=== PATIENT | female | born 1955 | race Caucasian/White ===

== ENCOUNTER 2019-10-16 15:00 | Outpatient (CLI) | payer BC, SELFPAY ==
--- NOTE | ~2019-10-16 | MM_ITS ---
EXAMINATION: MM screening scarlet BI w benjamin HISTORY: Screening mammogram, family history of breast cancer in her mother. TECHNIQUE: Craniocaudal and mediolateral oblique 3-D tomosynthesis images were obtained and synthetic 2-D images were generated. CAD analysis was submitted and interpreted. COMPARISON: 09/18/2018, 09/05/2017, 08/29/2016, 08/15/2014 BREAST PARENCHYMAL COMPOSITION: There are scattered areas of fibroglandular density. FINDINGS: Asymmetry in the middle third of the inner left breast on the craniocaudal view is stable o n multiple prior mammograms, consistent with a benign finding. There is no evidence of suspicious mas s, calcification, or architectural distortion to suggest malignancy in either breast. There has been no suspicious interval change. IMPRESSION: 1. No mammographic evidence of malignancy. 2. Recommend routine screening mammography in one year. BI-RADS Category 2: Benign finding(s). Reviewed, dictated and finalized at location A.
== END 2019-10-16 15:01 | disposition home or self-care (01) ==
LOC: ANHIMG 15:04
PROVIDERS: PCP Physician Assistant; Visit Provider Physician Assistant
DX: Z12.31 Encounter for screening mammogram for malignant neoplasm of breast (principal)
CPT/HCPCS: 77063; 77067

== ENCOUNTER 2020-10-19 15:43 | Outpatient (CLI) | payer BC, SELFPAY ==
--- NOTE | ~2020-10-19 | MM_ITS ---
EXAMINATION: MM screening scarlet BI w benjamin HISTORY: Screening TECHNIQUE: Craniocaudal and mediolateral oblique 3-D tomosynthesis images were obtained and synthetic 2-D images were generated. CAD analysis was submitted and interpreted. COMPARISON: Comparison to multiple prior studies sequentially, with oldest reviewed study dated 08/15. BREAST PARENCHYMAL COMPOSITION: There are scattered areas of fibroglandular density. FINDINGS: Left breast asymmetry in the upper inner quadrant of the left breast is stable. There is no evidence of suspicious mass, calcification, or architectural distortion to suggest malignancy in eit her breast. There has been no suspicious interval change. IMPRESSION: 1. No mammographic evidence of malignancy. 2. Recommend routine screening mammography in one year. BI-RADS Category 1: Negative Reviewed, dictated and finalized at location A.
== END 2020-10-19 15:44 | disposition home or self-care (01) ==
PROVIDERS: PCP Physician Assistant; Visit Provider Physician Assistant
DX: Z12.31 Encounter for screening mammogram for malignant neoplasm of breast (principal)
CPT/HCPCS: 77063; 77067

== ENCOUNTER 2021-10-21 13:26 | Outpatient (CLI) | payer BC, SELFPAY ==
--- NOTE | ~2021-10-21 | MM_ITS ---
EXAMINATION: MM screening scarlet BI w benjamin HISTORY: Screening TECHNIQUE: Craniocaudal and mediolateral oblique 3-D tomosynthesis images were obtained and synthetic 2-D images were generated. CAD analysis was submitted and interpreted. COMPARISON: Comparison to multiple prior studies sequentially, with oldest reviewed study dated 08/26. BREAST PARENCHYMAL COMPOSITION: There are scattered areas of fibroglandular density. FINDINGS: There is no evidence of suspicious mass, calcification, or architectural distortion to sugg est malignancy in either breast. There has been no suspicious interval change. IMPRESSION: 1. No mammographic evidence of malignancy. 2. Recommend routine screening mammography in one year. BI-RADS Category 1: Negative Reviewed, dictated and finalized at location A.
--- NOTE | ~2021-10-21 | DEXA_ITS ---
Bone Density Report Name: VALENTÍN BARBOSA Age: 66 Sex: Female Ethnicity: White Date of : 1955 Indication: osteopenia; hysterectomy; postmenopausal Referring Provider: LIDIA, WADE Study: Bone densitometry was performed. Exam Date: October 21, 2021 Accession number: [id number] Bone Density: Region BMD T-score Z-score Classification AP Spine(L1, L3, L4) 0.857 -1.8 0.0 Osteopenia Femoral Neck (Left) 0.639 -1.9 -0.4 Osteopenia Total Hip (Left) 0.769 -1.4 -0.2 Osteopenia Femoral Neck (Right) 0.652 -1.8 -0.3 Osteopenia Total Hip (Right) 0.811 -1.1 0.1 Osteopenia Total Hip Mean 0.790 -1.3 -0.1 Osteopenia World Health Organization criteria for BMD impression classify patients as: Normal (T-score at or above -1.0), Osteopenia (T-score between -1.0 and -2.5), or Osteoporosis (T-score at or below -2.5). 10-year Fracture Risk(1): Major Osteoporotic Fracture 9.9% Hip Fracture 1.3% Reported Risk Factors: [place] (), Neck BMD=0.639, BMI=24.9 (1) FRAX(R) Version 3.08. Fracture probability calculated for an untreated patient. Fracture probability may be lower if the patient has received treatment. Previous Exams: Region Exam Age BMD T-score BMD Change BMD Change Date g/cm2 vs Baseline vs Previous AP Spine (L1,L3-L4) 10/21/2021 66 0.857 -1.8 0.014 (1.6%) 0.014 (1.6%) 09/18/2018 63 0.844 -1.9 Total Hip(Left) 10/21/2021 66 0.769 -1.4 -0.010 (-1.3%) -0.010 (-1.3%) 09/18/2018 63 0.779 -1.3 Total Hip(Right) 10/21/2021 66 0.811 -1.1 -0.054 (-6.2%) -0.054 (-6.2%) 09/18/2018 63 0.865 -0.6 *Denotes significance at 95% confidence level, LSC for AP Spine = 0.022 g/cm2, LSC for Total Hip = 0.027 g/cm2 Clinical Information Provided by Patient: Has used the following medications: Vitamin D, Calcium Has the following medical conditions: Hysterectomy Patient maximum height was 62.5 Menopause Age: 41 Drinks caffeinated beverages Onset of menses at age 14 Number of children 0 Impression: The patient has low bone mass, based on the Left Femoral Neck T-score. The patient has an estimated ten-year risk of hip fracture of 1.3% and an estimated ten-year risk of major fracture of 9.9%, based on the WHO FRAX algorithm. The BMD for the Total Hip(Right) decreased, changing by -6.2% since the last DXA exam. Discussion: BONE DENSITY IS LOW AT ONE OR MORE SKELETAL SITES. This patient's lowest T-score is low at one or
== END 2021-10-21 13:27 | disposition home or self-care (01) ==
LOC: ANHIMG 13:28
PROVIDERS: PCP Physician Assistant; Visit Provider Physician Assistant
DX: Z12.31 Encounter for screening mammogram for malignant neoplasm of breast (principal); Z78.0 Asymptomatic menopausal state; M85.88 Other specified disorders of bone density and structure, other site; M85.852 Other specified disorders of bone density and structure, left thigh; M85.851 Other specified disorders of bone density and structure, right thigh
CPT/HCPCS: 77063; 77067; 77080

== ENCOUNTER 2022-12-15 14:00 | Outpatient (CLI) | payer OTHER, SELFPAY ==
--- NOTE | ~2022-12-15 | MM_ITS ---
EXAMINATION: MM screening scarlet BI w benjamin HISTORY: Screening mammogram TECHNIQUE: Craniocaudal and mediolateral oblique 3-D tomosynthesis images were obtained and synthetic 2-D images were generated. CAD analysis was submitted and interpreted. COMPARISON: 10/21/2021, 10/19/2020, 10/16/2019 bilateral screening mammogram examinations BREAST PARENCHYMAL COMPOSITION: There are scattered areas of fibroglandular density. FINDINGS: Stable mild fibroglandular asymmetry. There is no evidence of suspicious mass, calcificatio n, or architectural distortion to suggest malignancy in either breast. There has been no suspicious i nterval change. IMPRESSION: 1. No mammographic evidence of malignancy. 2. Recommend routine screening mammography in one year. BI-RADS Category 1: Negative Reviewed, dictated and finalized at location A.
== END 2022-12-15 14:01 | disposition home or self-care (01) ==
LOC: ANHIMG 14:02
PROVIDERS: PCP Physician Assistant; Visit Provider Physician Assistant
DX: Z12.31 Encounter for screening mammogram for malignant neoplasm of breast (principal)
CPT/HCPCS: 77063; 77067

== ENCOUNTER 2023-12-24 13:42 | Outpatient (CLI) | payer OTHER, SELFPAY ==
--- NOTE | ~2023-12-24 | DEXA_ITS ---
Bone Density Report Name: VALENTÍN BARBOSA Age: 68 Sex: Female Ethnicity: White Date of : 1955 Indication: osteopenia; hysterectomy; Referring Provider: LIDIA, WADE Study: Bone densitometry was performed. Exam Date: December 24, 2023 Accession number: [id number] Bone Density: Region BMD T-score Z-score Classification AP Spine(L1, L3, L4) 0.901 -1.4 0.5 Osteopenia Femoral Neck (Left) 0.628 -2.0 -0.4 Osteopenia Total Hip (Left) 0.768 -1.4 -0.1 Osteopenia Femoral Neck (Right) 0.635 -1.9 -0.3 Osteopenia Total Hip (Right) 0.806 -1.1 0.2 Osteopenia Total Hip Mean 0.787 -1.3 0.1 Osteopenia World Health Organization criteria for BMD impression classify patients as: Normal (T-score at or above -1.0), Osteopenia (T-score between -1.0 and -2.5), or Osteoporosis (T-score at or below -2.5). 10-year Fracture Risk(1): Major Osteoporotic Fracture 11% Hip Fracture 1.6% Reported Risk Factors: [place] (), Neck BMD=0.628, BMI=24.8 (1) FRAX(R) Version 3.08. Fracture probability calculated for an untreated patient. Fracture probability may be lower if the patient has received treatment. Previous Exams: Region Exam Age BMD T-score BMD Change BMD Change Date g/cm2 vs Baseline vs Previous AP Spine (L1,L3-L4) 12/24/2023 68 0.901 -1.4 0.057 (6.8%)* 0.043 (5.1%)* 10/21/2021 66 0.857 -1.8 0.014 (1.6%) 0.014 (1.6%) 09/18/2018 63 0.844 -1.9 Total Hip(Left) 12/24/2023 68 0.768 -1.4 -0.011 (-1.4%) -0.001 (-0.1%) 10/21/2021 66 0.769 -1.4 -0.010 (-1.3%) -0.010 (-1.3%) 09/18/2018 63 0.779 -1.3 Total Hip(Right) 12/24/2023 68 0.806 -1.1 -0.059 (-6.9%) -0.006 (-0.7%) 10/21/2021 66 0.811 -1.1 -0.054 (-6.2%) -0.054 (-6.2%) 09/18/2018 63 0.865 -0.6 *Denotes significance at 95% confidence level, LSC for AP Spine = 0.022 g/cm2, LSC for Total Hip = 0.027 g/cm2 Clinical Information Provided by Patient: Has used the following medications: Vitamin D, Calcium Has the following medical conditions: Hysterectomy Patient maximum height was 62.5 Menopause Age: 41 Drinks caffeinated beverages Onset of menses at age 14 Number of children 0 Impression: The patient has low bone mass, based on the Left Femoral Neck T-score. The patient has an estimated ten-year risk of hip fracture of 1.6% and an estimated ten-year risk of major fracture of 11%, based on the WHO FRAX algorithm. No significant frederick
--- NOTE | ~2023-12-24 | MM_ITS ---
EXAMINATION: MM screening scarlet BI w benjamin HISTORY: Screening TECHNIQUE: Craniocaudal and mediolateral oblique 3-D tomosynthesis images were obtained and synthetic 2-D images were generated. CAD analysis was submitted and interpreted. COMPARISON: Comparison to multiple prior studies sequentially, with oldest reviewed study dated 08/2017. BREAST PARENCHYMAL COMPOSITION: Not dense: There are scattered areas of fibroglandular density. FINDINGS: There is no evidence of suspicious mass, calcification, or architectural distortion to sugg est malignancy in either breast. There has been no suspicious interval change. IMPRESSION: 1. No mammographic evidence of malignancy. 2. Recommend routine screening mammography in one year. BI-RADS Category 1: Negative Reviewed, dictated and finalized at location B.
== END 2023-12-24 13:43 | disposition home or self-care (01) ==
LOC: ANHIMG 13:43
PROVIDERS: PCP Physician Assistant; Visit Provider Physician Assistant
DX: Z12.31 Encounter for screening mammogram for malignant neoplasm of breast (principal); Z78.0 Asymptomatic menopausal state; M85.852 Other specified disorders of bone density and structure, left thigh; M85.851 Other specified disorders of bone density and structure, right thigh; M85.88 Other specified disorders of bone density and structure, other site
CPT/HCPCS: 77063; 77067; 77080

== ENCOUNTER 2024-12-31 08:30 | Outpatient (CLI) | payer OTHER, SELFPAY ==
--- NOTE | ~2024-12-31 | MM_ITS ---
EXAMINATION: MM screening [facility] BI w benjamin HISTORY: Screening TECHNIQUE: Craniocaudal and mediolateral oblique 3-D tomosynthesis images were obtained and synthetic 2-D images were generated. CAD analysis was submitted and interpreted. COMPARISON: Comparison to multiple prior studies sequentially, with oldest reviewed study dated 09/18/2018. BREAST PARENCHYMAL COMPOSITION: Not dense: There are scattered areas of fibroglandular density. FINDINGS: There is no evidence of suspicious mass, calcification, or architectural distortion to suggest malignancy in either breast. There has been no suspicious interval change. IMPRESSION: 1. No mammographic evidence of malignancy. 2. Recommend routine screening mammography in one year. BI-RADS Category 1: Negative Reviewed, dictated and finalized at location B.
--- OUTSIDE RECORDS SUMMARY | 2024-12-31 08:43 | XMS_ITS | Encounter Summary ---
Author Organization [facility] Address [address] [place] [address] Care Team Providers Care Jig Inspector Name Role Phone Diana Butterfield MD Primary Care Provider [phone] Diana Butterfield MD Primary Care Provider [phone] Diana Butterfield MD Primary Care Provider [phone] Mitzi Hayes Primary Care Provider [phone] Rashid Gomez PRODUCT MANUFACTURING PROFESSIONAL Unavailable [phone] Encounter Details Date Type Department Care Team (Late st Contact Info) Description 06/11/2009 Orders Only [facility] Health Information Management [address] [place] [address] Scanning, Provider Social History Tobacco Use Types Packs/Day Years Used Date Smoking Tobacco: Never Assessed Comments Unknown Sex and Gender Information Value Date Recorded Sex Assigned at Not on file 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 Gender Identity Female 06/14/2020 3:59 PM CDT Sexual Orientation Straight 06/14/2020 3: 59 PM CDT documented as of this encounter Plan of Treatment Not on file documented as of this encounter Procedures Procedure Name Priority Date/Time Associated Diagnosis Comments SCAN - RADIOLOGY/IMAGING 06/11/2009 documented in this encounter Results * SCAN - RADIOLOGY/IMAGING (06/11/2009) Anatomical Region Laterality Modality Other us Provider Scanning Final Result documented in this encounter Visit Diagnoses Not on filedocumented in this encounter Care Teams Jig Inspector Relationship Specialty Start Date End Date Diana Butterfield MD [address] [address] PCP - General 03/17/11 07/08/18 Diana Butterfield MD [address] [address] PCP - General 02/15/11 03/16/11 Diana Butterfield MD [address] [address] PCP - General 02/06/11 02/14/11 Mitzi Hayes PA [address] [facility] [address] [place] [address] PCP - General Internal Medicine 07/09/18 Rashid Gomez LPN [address] [place] [address] [address] [place] [address] ACO Care Safe Technician 10/05/23 10/09/23 documented as of this encounter
--- OUTSIDE RECORDS SUMMARY | 2024-12-31 08:43 | XMS_ITS | Encounter Summary ---
Author Organization [facility] Address [address] [place] [address] Care Team Providers Care Cigarette Machine Operator Name Role Phone Diana Butterfield MD Primary Care Provider [phone] Encounter Details Date Type Department Care Team (Late st Contact Info) Description 05/20/2024 Lab Requisition [facility] - DermPath Lab [address] [place] [address] Cherise Vilchis MD [address] [facility] [address] [place] [address] Social History Tobacco Use Types Packs/Day Years Used Date Smoking Tobacco: Never Assessed Comments Unknown Sex and Gender Information Value Date Recorded Sex Assigned at Not on file Legal Sex Female 3:01 PM CDT Gender Identity Not on file Sexual Orientation Not on file documented as of this encounter Plan of Treatment Not on file documented as of this encounter Procedures Procedure Name Priority Date/Time Associated Diagnosis Comments DERMATOPATHOLOGY Routine 05/20/2024 11:1 1 AM RN SURGICAL documented in this encounter Results * DERMATOPATHOLOGY (05/20/2024 11:11 AM RN SURGICAL) Case Report Dermatopathology Report Case: [id number] Authorizing Provider: Cherise Vilchis MD Collected: 05/20/2024 11:11 AM Ordering Location: [facility] - Received: 05/22/2024 07:45 AM DermPath Lab Pathologist: Dhara Ma MD Specimen: Skin, left lat inferior cheek 4:49 PM RN SURGICAL DERMATOPATHOLOGY LABORATORY Final Diagnosis Specimen A. 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 The specimen consists of a shave biopsy measuring 6x4x1 mm. Jar 0. 4:49 PM [facility] DERMATOPATHOLOGY LABORATORY Microscopic Description Specimen A. SKIN, left lat inferior cheek: Deep within the dermis and extending to the base of the specimen, there is a relatively well-circumscribed collection of bland fibrohistiocytic cells in haphazard array among coarse collagen bundles. The hematoxylin and eosin stain is reviewed; immunohistochemical stains are performed to further characterize this process. The spindle cells are positive for Factor XIIIa and weakly positive for ERG. CD34 and CD31 highlight intrinsic vasculature but are negative within the spindle cells. The lesional cells are additionally negative for Mart1/MelanA, SOX10, S100, SMA, desmin, RYAN, sanches-cytokeratin, ALK1 and HHV8. 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 However, as this lesion is only partially sampled in these sections, a deeper process cannot be definitively excluded. As such, consideration could be given to conservative but complete removal to ensure full histopathologic evaluation. This case has been reviewed by Dr. Aleja Ma who concurs with the diagnosis. 4:49 PM [facility] DERMATOPATHOLOGY LABORATORY Disclaimer An external and internal positive and negative controls are appropriate for the histochemical, immunohistochemical and immunofluorescence stain(s) in this case (if any), except where stated explicitly. The performance characteristics of the stain(s) cited in this report were developed and its performance characteristic determined by the Dermatopathology Laboratory at [facility], directed by Dr. Brandon Menendez. These tests need not be, and therefore are not, approved by the [place] Food and Drug Administration. The tests are used for clinical purposes. Billing Codes Specimen Charges Stain Charges 26528 1 77931 10854 05296 [id number] 72272 68297 60980 25803 64478 19171 91822 48173 32186 1 1 1 1 1 1 1 1 1 1 1 1 1 5 4:49 PM RN SURGICAL DERMATOPATHOLOGY LABORATORY Embedded Images 5 4:49 PM RN SURGICAL DERMATOPATHOLOGY LABORATORY Pathology/Cytolo gy TISSUE SPECIMEN FROM SKIN / Unknown 05/20/2024 11:11 AM RN SURGICAL 05/22/2024 7:45 AM RN SURGICAL Cherise Vilchis MD LAB - PATHOLOGY/CYTOLOGY OR DERABLES Final Result DERMATOPATHOLOGY LABORATORY [facility] - Department of Dermatology [facility] Medicine [address] [place] [address], [address] [phone] documented in this encounter Visit Diagnoses Not on filedocumented in this encounter Care Teams Cigarette Machine Operator Relationship Specialty Start Date End Date Diana Butterfield MD [address] [place] [phone] PCP - General 09/16/20 documented as of this encounter
--- OUTSIDE RECORDS SUMMARY | 2024-12-31 08:43 | XMS_ITS | Encounter Summary ---
Author Organization [facility] Address [address] [place] [address] Care Team Providers Care Tandem Operator Name Role Phone Diana Butterfield MD Primary Care Provider Encounter Details Date Type Department Care Team (Late st Contact Info) Description 06/26/2024 Lab Requisition [facility] - DermPath Lab [address] [facility] [place] [address] Cindy Saleh MD [address] [facility] [address] [place] [address] Social History Tobacco Use Types Packs/Day Years [...] Priority Date/Time Associated Diagnosis Comments DERMATOPATHOLOGY Routine 06/26/2024 12:0 0 AM CDT documented in this encounter Results * DERMATOPATHOLOGY (06/26/2024 12:00 AM CDT) Case Report Dermatopathology Report Case: [id number] Authorizing Provider: Cindy Saleh MD Collected: 06/26/2024 12:00 AM Ordering Location: [facility] - Received: 06/30/2024 07:24 AM DermPath Lab Pathologist: Rj Menendez MD Specimen: Skin, left lat inferior cheek 12:50 PM CDT DERMATOPATHOLOGY LABORATORY Final Diagnosis Specimen A. 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 DERMATOPATHOLOGY LABORATORY Gross Description Specimen A: Received is one formalin filled container labeled with the patient's name and designated left lat inferior cheek.The specimen consists of an ellipse measuring 73i39d4 mm and is oriented with the notch at the 12 o'clock position labeled on the requisition as notch. The 12 to 6 o'clock margin is inked green. The 6 o'clock to 12 o'clock margin is inked red. The 12 o'clock tip is submitted in cassette 1. The 6 o'clock tip is submitted in cassette 2. The remainder of the ellipse is serially sectioned and submitted in cassettes 3-4. Jar 0. 12:50 PM [facility] DERMATOPATHOLOGY LABORATORY Microscopic Description Specimen A. SKIN, left lat inferior cheek: There is epidermal hyperplasia. Within the dermis, there are fibrohistiocytic, which are highlighted on Factor XIIIA. P16 highlights some of the same cells. These cells are present in haphazard array among coarse collagen bundles. This lesion is not present at the margin of the specimen. There are fibroblasts and collagen bundles oriented parallel to the skin surface with elongated blood vessels, some of which are oriented perpendicular to the skin surface. COMMENT: Dermatofibromas are unusual on the head and neck. 12:50 PM T DERMATOPATHOLOGY LABORATORY Disclaimer An external and internal positive and negative controls are appropriate for the histochemical, immunohistochemical and immunofluorescence stain(s) in this case (if any), except where stated explicitly. The performance characteristics of the stain(s) cited in this report were developed and its performance characteristic determined by the Dermatopathology Laboratory at [facility], directed by Dr. Brandon Menendez. These tests need not be, and therefore are not, approved by the [place] Food and Drug Administration. The tests are used for clinical purposes. Billing Codes Specimen Charges Stain Charges 27859 1 52476 90619 1 1 12:50 PM [facility] DERMATOPATHOLOGY LABORATORY Embedded Images 04/02/202 5 12:50 PM CDT DERMATOPATHOLOGY LABORATORY Pathology/Cytolog y TISSUE SPECIMEN FROM SKIN / Unknown 06/26/2024 06/30/2024 7:24 AM CDT Cindy Saleh MD LAB - PATHOLOGY/CYTOLOGY ORD ERABLES Final Result DERMATOPATHOLOGY LABORATORY [facility] - Department of Dermatology [facility] [address] [place] [address], [address] [phone] documented in this encounter Visit Diagnoses Not on filedocumented in this encounter Care Teams Tandem Operator Relationship Specialty Start Date End Date Diana Butterfield MD [address] [place] [phone] PCP - General 09/16/20 documented as of this encounter
--- OUTSIDE RECORDS SUMMARY | 2024-12-31 08:43 | XMS_ITS ---
Author Name Sadaf PERALTA, MRS. Torres npal Address [address] [place] [id number] Phone [phone] Organization [facility] ([facility]) Care Team Providers Care Fur Joiner Name Role Phone SadafOralia Unavailable [phone] Rodriguez Garcia Unavailable [phone] ANIYA URENA Unavailable [phone] WADE MURILLO Unavailable [phone] Reason for Referral Not Available Allergies, adverse reactions, alerts No known allergies History of medication use Medication Class Instructions Start Date End Date amLODIPine Besylate 5 mg Tab TAKE 1 TABL ET (5 MG TOTAL) BY MOUTH DAILY. 2024-07-31 No Data Available Losartan Potassium 50 mg Tab TAKE 1 TABL ET BY MOUTH EVERY DAY 2024-01-01 No Data Available Calcium Citrate 250 mg Tab 1 tablet orally daily 10-08 No Data Available Vitamin-B Complex Tab No Data Available 2024-10-08 N o Data Available Glucosamine-Chondroitin 500/400 mg Tab No Data Available 2024-10-08 No Data Available Vitamin D3 10 MCG (400 UNIT) Tab No Data Available 2024-10-08 No Data Available Daily Value Multivitamin Tab 1 tablet orally daily 08-06-08 No Data Available Problem List Problem Status Onset Date Resolved Date Synopsis HTN (hypertension) Active 2024-10-08 N/A N/A Osteopenia Active 2024-10-08 N/A N/A Encounters Encounters Type Facility Date of Service Diagnosis/Co mplaint Home visit for evaluation and management of new patient requiring medically appropriate examination and low level of medical decision making. If using time, at least 30 minutes total time on encounter [facility] 10/08/2024 Essential (primary) hypertensionOth disrd of bone density and structure, unspecified site Home visit for evaluation and management of new patient requiring medically appropriate examination and low level of medical decision making. If using time, at least 30 minutes total time on encounter [facility] 10/08/2024 Essential (primary) hypertension Home visit for evaluation and management of new patient requiring medically appropriate examination and low level of medical decision making. If using time, at least 30 minutes total time on encounter [facility] 10/08/2024 Essential (primary) hypertension Home visit for evaluation and management of new patient requiring medically appropriate examination and low level of medical decision making. If using time, at least 30 minutes total time on encounter [facility] [place] 10/08/2024 Essential (primary) hypertension Home visit for evaluation and management of new patient requiring medically appropriate examination and low level of medical decision making. If using time, at least 30 minutes total time on encounter [facility] 10/08/2024 Essential (primary) hypertension Vital Signs Date of Collection Vitals 2024-10-08 07:30:00 Height - 157.48 cmWe ight - 61.24 kgBody Mass Index (BMI) - 24.69 kg/m2BP Diastolic - 84.0 mm[Hg]BP Systolic - 132.0 mm[Hg]Heart Rate - 78.0 /minRespiratory Rate - 16.0 /minO2 % BldC Oximetry - 98.0 % Social History Sex Female History of Procedures Procedures Service Procedure code Service date Servicing provider Phone# Home visit for evaluation and management of new patient requiring medically appropriate examination and low level of medical decision making. If using time, at least 30 minutes [place] time on encounter [id number] 2024-10-08 No Data Available No Data Availa ble Most recent systolic blood pressure 130 -139 mm Hg 3075F 2024-10-08 No Data Available No Data Availa ble Most recent dystolic blood pressure 80-89 mm Hg 3079F 2024-10-08 No Data Available No Data Availa ble Patient screened for fall risk; no falls in the last year or 1 fall with no injury in the last year 1100F 2024-10-08 No Data Available No Data Avail able Advance care planning discussion documented in medical record [id number] 2024-10-08 No Data Available No Data [place] bull Functional Status Functional Category Effective Dates lives with 2024-10-[address] and 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 2024-10-08 independent of ADL's 2024-10-08 Mental Status Status Date no cognitive issues or decline noted 08-06-08 Assessments Date of Service Assessments 2024-10-08 07:30:00 HTN (hypertension)Os teopenia Plan of Care Date of Service Plans 2024-10-08 07:30:[address] ablecontinue amlodipine 5 mg once daily (started this year) and Losartan 50 mg once dailydiscussed sodium and caffeine intakecontinue staying active and drinking 60 oz of water dailymanaged by PCPstable bone density scancontinue calcium and vitamin D3 dailymanaged by PCP Health Concerns Date Concern 2024-10-08 [facility] is a service that involves a physician or advanced practice provider conducting comprehensive assessments in your patient s home or virtually to address crucial areas such as chronic conditions, quality gaps, social concerns, fall risk prevention, and various screenings. Please note that your patient will remain attributed to you even though they are participating in this service. If you have any questions, please reach out directly to our team at the phone number above.Your patient, Neris Salgado, 1955, was seen today for a [facility] visit. Patient read rights and responsibilities and consented to treatment. The purpose of this summary is to update you on the patient's current health status and share any relevant findings from the examination. 2024-10-08 Patient has no medic al questions or concerns this morning.
--- OUTSIDE RECORDS SUMMARY | 2024-12-31 08:43 | XMS_ITS | Clinical Summary ---
Author Organization [facility] Address [address] [place] [address] Care Team Providers Care Route Process Administrator Name Role Phone Mitzi Hayes Primary Care Provider [phone]- [phone] Allergies No known active allergies Medications cholecalciferol (VITAMIN D-3) 400 unit capsule 1 tablet/capsule (400 Units total) daily Active cranberry extract 500 mg capsule 500 mg Active vitamin B complex capsule Rx: Super B Complex Active multivit-min/iro n/folic acid/K (ADULTS MULTIVITAMIN ORAL) Rx: Multivitamin Adult - Tablet Active glucosamine-kathy droitin (Glucosamine-Cho ndroitin Complx) 500-400 mg capsule 2 (two) times a day Active calcium citrate/vitamin D3 (CALCIUM CITRATE + D ORAL) daily Active turmeric root extract 500 mg capsule Take by mouth Active losartan (COZAAR) 50 mg tablet TAKE 1 TABLET BY MOUTH EVERY DAY 90 tablet 1 5 Active amLODIPine (NORVASC) 5 mg tablet Take 1 tablet (5 mg total) by mouth daily 90 tablet 1 5 Active Active Problems Problem Noted Date Diagnosed Date Annual physical exam 07/31/2024 Assessment & Plan (07/31/2024 2:20 PM CDT): Encouraged healthy lifestyle, good nutrition and exercise. Encouraged Calcium and Vitamin D and weight bearing exercise for bone health. Reviewed immunizations Reviewed age appropirate screenings. Immunity status testing 07/29/2024 Medicare annual wellness visit, subsequent 07/29 Osteopenia of spine 01/14/2024 Assessment & Plan (01/14/2024 9:31 PM CDT): Reviewed DEXA results. Her spine is improved her bilateral hips have stayed stable. Recommend to continue with calcium vitamin-D and exercise. Will plan to recheck the DEXA in 2-3 years Vaginal atrophy 07/11/2022 Assessment & Plan (01/14/2024 9:32 PM CDT): Patient is not interested in using any medications for the vaginal atrophy she tried some and they were either too expensive or not convenient. She plans to just monitor Assessment & Plan (07/16/2023 2:27 PM CDT): Patient no longer using Vagifem and never began to use Intrarosa due to cost. Pt does not express interest in further working this up. She was advised on use of different lubricants such as olive oil or KY jelly and informed to return to office if she decides she would like to medically treat this. Assessment & Plan (01/19/2023 9:57 PM CDT): Patient has been using Vagifem for maybe 6 months. Has not noticed a significant difference in his becoming more worried about the estrogen exposure. Discussed alternatives. Discussed intrarosa, reviewed risks benefits alternatives side effects and proper use. Will go ahead and send. Advised this is branded so unsure of cost. If too expensive she understands that there is a prior Auth or any substitution. Assessment & Plan (07/11/2022 9:41 PM CDT): This is a significant, separately identifiable problem that was evaluated and managed on the same day as the wellness exam HYST with BSO in her 40's. Did estrogen. Stopped around age 52. Patient states canal is so narrowed that is difficult to have any penetration. Willing to consider vaginal estrogen. Reviewed types of estrogen products for the vagina as well as risks benefits alternatives side effects and proper use. Prefers to try Vagifem. Use every night at bedtime for 2 weeks and then twice a week for maintenance. Will follow-up in 6 months reassess or sooner for any other problems or concerns Acute pain of left knee 12/05/2021 Assessment & Plan (12/05/2021 10:47 AM CDT): Encouraged NSAIDS (if able to safely tolerate) or Tylenol. Topical preparations like Lidocaine patches, Biofreeze, ICYHOT etc as needed. Encouraged PT. -- order provided. If persist, will consider Ortho vs MRI. Discussed xrays and decided against at this time as no impact injury. Menopause 06/24/2021 Assessment & Plan (07/16/2023 2:23 PM CDT): DXA scan due in September. Order provided. Mammogram due in December. Order provided. Assessment & Plan (06/24/2021 2:39 PM CDT): DEXA order provided Fatigue 06/18/2020 Assessment & Plan (01/14/2024 9:32 PM CDT): Probably multifactorial. Check labs and followup to re-evaluate Assessment & Plan (07/11/2022 9:39 PM CDT): Probably multifactorial. Check labs and followup to re-evaluate Assessment & Plan (06/24/2021 2:38 PM CDT): Probably multifactorial. Check labs and followup to re-evaluate Skin lesion of face 06/18/2020 Assessment & Plan (06/18/2020 4:03 PM CDT): She notes a new lesion on the left lower cheek. Recommend Derm referral for full skin exam and further evaluation of this lesion. MARA-inhibitor cough 06/17/2020 Overview (06/17/2020): MARA cough on lisinopril. Assessment & Plan (06/18/2020 4:00 PM CDT): Possible MARA cough on lisinopril. Will change to ARB BMI 25.0-25.9,adult 05/30/2019 Assessment & Plan (07/21/2024 1:24 PM CDT): Weight/BMI is in healthy range. Continue healthy lifestyle to maintain. Assessment & Plan (01/14/2024 1:53 PM CDT): Weight/BMI is in healthy range. Continue healthy lifestyle to maintain. Assessment & Plan (10/05/2023 10:27 AM CDT): Weight/BMI is in healthy range. Continue healthy lifestyle to maintain. Assessment & Plan (07/16/2023 6:16 PM CDT): Pt instructed to continue to eat healthy and exercise. 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 Continue healthy lifestyle to maintain. Essential hypertension 05/30/2019 Assessment & Plan (01/14/2024 9:32 PM CDT): Bp is stable/in acceptable range for any co-morbidities. Encouraged to limit sodium intake and exercise for weight control. Continue losartan 25 Assessment & Plan (10/05/2023 10:28 AM CDT): Encouraged to limit sodium intake and exercise for weight control. BP has remained above goal for the last couple visits. Has been on losartan 25. Willing to increase to 50 mg. May take 2 of her 25 mg tablets until they are exhausted then will refill a 50 mg tablet taking 1 daily. Follow up in 2 weeks with a nurse visit to recheck blood pressure sooner any problems or concerns Assessment & Plan (07/16/2023 2:24 PM CDT): BP is stable. Encouraged to limit sodium intake and exercise. Continue losartan 25. Assessment & Plan (01/19/2023 9:57 PM CDT): Bp is stable/in acceptable range for any co-morbidities. Encouraged to limit sodium intake and exercise for weight control. Continue losartan 25 Assessment & Plan (07/11/2022 9:39 PM CDT): Bp is stable/in acceptable range for any co-morbidities. Encouraged to limit sodium intake and exercise for weight control. Continue losartan 25 Assessment & Plan (06/24/2021 2:38 PM CDT): Bp is stable/in acceptable range for any co-morbidities. Encouraged to limit sodium intake and exercise for weight control. Continue losartan Assessment & Plan (06/18/2020 4:02 PM CDT): Complete her lisinopril Transition to Losartan 25mg. Monitor home bp for stability when she changes and if elevated may need to increased. Assessment & Plan (05/30/2019 8:35 AM MARBLE SETTER HELPER): Bp is stable/in acceptable range for any co-morbidities. Encouraged to limit sodium intake and exercise for weight control. Breast cancer screening by mammogram 05/30/2019 Assessment & Plan (07/16/2023 2:31 PM CDT): Mammogram order provided. Assessment & Plan (07/11/2022 9:39 PM CDT): Mammogram order provided Assessment & Plan (06/24/2021 2:38 PM CDT): Mammogram order provided Assessment & Plan (06/18/2020 4:02 PM CDT): Mammogram order provided Assessment & Plan (05/30/2019 8:36 AM MARBLE SETTER HELPER): Mammogram order provided Resolved Problems Problem Noted Date Diagnosed Date Resolved Date Medicare annual wellness visit, subsequent 01/14/2024 01/14/2024 Need for influenza vaccination 01/14/2024 07/29/2024 Assessment & Plan (01/14/2024 9:32 PM CDT): Flu vaccine updated in the office today Need for vaccination for Strep pneumoniae 01/14/2024 07/29/2024 Assessment & Plan (01/14/2024 9:32 PM CDT): Prevnar 20 updated in the office today Abrasion of right cornea 10/05/2023 Assessment & Plan (10/05/2023 10:27 AM CDT): Patient has sustained a corneal abrasion yesterday when Ziploc bag hit her eye. Was evaluated in the ER. Is on antibacterial drops. Continue as instructed with the drops. If her symptoms worsen or do not fully resolve she is to follow up immediately. Medicare annual wellness visit, initial 07/16/2023 01/14/2024 Assessment & Plan (07/16/2023 2:30 PM CDT): Reviewed medications, labs, and health maintenance with pt. See medicare documentation on chart. Annual physical exam 01/19/2023 025 Assessment & Plan (01/14/2024 9:32 PM CDT): Encouraged healthy lifestyle, good nutrition and exercise. Encouraged Calcium and Vitamin D and weight bearing exercise for bone health. Reviewed immunizations Reviewed age appropirate screenings. Assessment & Plan (01/19/2023 9:57 PM CDT): Encouraged healthy lifestyle, good nutrition and exercise. Encouraged Calcium and Vitamin D and weight bearing exercise for bone health. Reviewed immunizations Reviewed age appropirate screenings. Need for vaccination 01/19/2023 024 Assessment & Plan (01/19/2023 9:58 PM CDT): Flu vaccine updated in the office today BMI 25.0-25.9,adult 07/11/2022 01/11/20 23 Assessment & Plan (07/11/2022 2:27 PM CDT): Weight/BMI is in healthy range. Continue healthy lifestyle to maintain. Welcome to Medicare preventive visit 07/11/2022 07/16/2023 Assessment & Plan (07/11/2022 9:40 PM CDT): Encouraged healthy lifestyle, good nutrition and exercise. Encouraged Calcium and Vitamin D and weight bearing exercise for bone health. Reviewed immunizations. Reviewed age appropirate screenings. Medicare Wellness Documentation is completed within the chart EKG in the office today was completely normal Colon cancer screening 07/11/202207/29 Assessment & Plan (07/16/2023 2:22 PM CDT): Last colonoscopy 07/[address] Antonio. No polyps or specimens collected. Repeat in 10 years (2033). Assessment & Plan (07/11/2022 9:41 PM CDT): Due for colon cancer screening. Prefers colonoscopy. Referral to Dr. Antonio. Last colonoscopy [address] Walker BMI 24.0-24.9, adult 06/23/2021 023 Assessment & Plan (06/23/2021 2:07 PM CDT): Weight/BMI is in healthy range. Continue healthy lifestyle to maintain. BMI 24.0-24.9, adult 06/17/2020 022 Assessment & Plan (06/17/2020 2:02 PM CDT): Weight/BMI is in healthy range. Continue healthy lifestyle to maintain. Annual physical exam 05/30/2019 023 Assessment & Plan (06/24/2021 2:38 PM CDT): Encouraged healthy lifestyle, good nutrition and exercise. Encouraged Calcium and Vitamin D and weight bearing exercise for bone health. Reviewed immunizations Reviewed age appropirate screenings. Assessment & Plan (06/18/2020 4:02 PM CDT): Encouraged healthy lifestyle, good nutrition and exercise. Encouraged Calcium and Vitamin D and weight bearing exercise for bone health. Reviewed immunizations Reviewed age appropirate screenings. Assessment & Plan (05/30/2019 8:36 AM MARBLE SETTER HELPER): Encouraged healthy lifestyle, good nutrition and exercise. Encouraged Calcium and Vitamin D and weight bearing exercise for bone health. Reviewed immunizations Reviewed age appropirate screenings. Diabetes mellitus screening 05/30/2019 07/11/2022 Assessment & Plan (05/30/2019 8:35 AM MARBLE SETTER HELPER): Check labs Lipid screening 05/30/2019 07/11/2022 Assessment & Plan (05/30/2019 8:36 AM MARBLE SETTER HELPER): Check labs Other fatigue 05/30/2019 07/11/2022 Assessment & Plan (05/30/2019 8:35 AM MARBLE SETTER HELPER): Probably multifactorial. Check labs and followup to re-evaluate Immunizations Immunization Administration Dates Next Due COVID-19 mRNA (ZeroCater) 0.3 m L (30 mcg) vaccine (12 years and up) 12/11/2023 Hep A, Adult 04/02/2003 Hep B Vaccine 04/02/2003 Influenza, Quadrivalent, Hig h Dose, Preservative Free, Intrr 01/10/2023 Influenza, Quadrivalent, Spl it, Intramuscular 12/19/2018 Influenza, Quadrivalent, Spl it, Preservative Free, Intramuscular 12/19/2018,01/03/2018,01/11/2016 Influenza, Trivalent, High D ose, Split, Preservative Free, Intramuscular 01/14/2024 Influenza, Trivalent, IM (MDV) 01/15/2015,2013 Influenza, Trivalent, Preser vative Free, Intramuscular 01/10/2017 Influenza, Unspecified 01/10/2023,2022(Deferred: Patient Refused),05/03/2021(Deferred: Patient Refused),12/31/2020,12/19/2018, 017 Pfizer SARS-CoV-2 Monovalent Vaccination (12+ Yrs) PURPLE 01/07/2022,03/13/2021,06/29/2020 Pfizer SARS-CoV-2 Monovalent Vaccination (5-11 Yrs) 07/20/2020 Pneumococcal Conjugate PCV 13 07/20/2017 Pneumococcal Conjugate Pcv20 01/14/2024 Pneumococcal Polysaccharide PPV23 06/05/2014 Polio, Unspecified 04/02/2005 Tdap 01/03/2018,08/10/2008 Typhoid, Unspecified 04/02/2008 Yellow Fever 04/02/2005 ZOSTER Recombinant 09/25/2017,07/20/2017 Surgical History Surgery Date Site/Laterality Comments TOTAL ABDOMINAL HYSTERECTOMY W/ BILATERAL SALPINGOOPHORECTOMY 04/02/1998 - 04/01/1999 fibrioids AV FISTULA REPAIR 04/02/2010 - 04/01/2011 Left Noted after a blood draw to the left antecubital area. Vessel was pulsating and growing so repaired. COLONOSCOPY Medical History Medical History Date Comments Hypertension Mid to late Motion sickness Colon polyp Arthritis Family History Medical History Relation Name Comments Alcohol abuse Father Aleksandr Cervantes Early Father Aleksandr Cervantes Heart disease Father Aleksandr Cervantes Hypertension Father Brandon Usher Obesity Father Brandon Usher Aneurysm Maternal Grandfather Cancer Maternal Grandfather Diabetes Maternal Grandmother Lorna Acuncius Heart attack Maternal Grandmother Lorna Acuncius Heart disease Maternal Grandmother Lorna Acuncius Obesity Maternal Grandmother Lorna Acuncius Stroke Maternal Grandmother Lorna Acuncius Allergy (severe) Mother Silvio Usher Arthritis Mother Silvio Usher Cancer Mother Silvio Usher Dementia Mother Silvio Usher Diabetes Mother Silvio Usher Hypertension Mother Silvio Usher Memory loss Mother Silvio Usher Obesity Mother Silvio Usher Vision loss Mother Silvio Usher No Known Problems Paternal Grandfather Diabetes Paternal Grandmother Diabetes Sister Julieth Glynn Relation Name Status Comments Father Aleksandr Cervantes Maternal Grandfather Maternal Grandmother Lorna Acuncius Mother Silvio Usher Paternal Grandfather Paternal Grandmother Sister Julieth Luh Glnyn Social History Tobacco Use Types Packs/Day Years Used Date Smoking Tobacco: Never Smokeless Tobacco: Never Tobacco Cessation:Counseling Given: Not Answered Alcohol Use Standard Drinks/Week Comments Never 0 (1 standard drink = 0.6 oz pur e alcohol) AUDIT-C Answer Date Recorded Q1: How often do you have a drink containing alcohol? Never 07/21/2024 Q2: How many drinks containi ng alcohol do you have on a typical day when you are drinking? Patient does not drink Q3: How often do you have si x or more drinks on one occasion? Never 07/21/2024 PHQ-2 Answer Date Recorded PHQ-2 Total Score (If total score is 3 or more points, staff should administer the PHQ-9) 0 07/21/2024 Personal Safety Answer Date Recorded Have you ever been in or are you currently in a harmful physical or emotional relationship or is someone making you feel afraid or unsafe? 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 Not on file Not on file Not on file Obstetrics History Last Filed Vital Signs Vital Sign Reading Time Taken Comments Blood Pressure 141/87 08/03/2024 7:59 AM CDT Pulse 99 08/03/2024 8:12 AM CDT Temperature 37.3 C (99.2 F) 08/03/2024 7:59 AM CDT Respiratory Rate 20 08/03/2024 7:59 AM CDT Oxygen Saturation 98% 08/03/2024 7:59 AM CDT Inhaled Oxygen Concentration - - Weight 62.2 kg (137 lb 3.2 oz) 07/21/2024 1:22 P M CDT Height 157.5 cm (5' 2) 07/21/2024 1:22 PM CDT Body Mass Index 25.09 07/21/2024 1:22 PM CDT Plan of Treatment Health Maintenance Due Date Last Done Comments Hepatitis C Screening 1955 Covid-19 Vaccine (2023- 5 season) 2024 12/11/2023, 12/19/2022, 01/07/2022, Additional history exists Influenza Vaccine (#1) 2024 , 01/10/2023, 01/10/2023, Additional history exists Breast Cancer Screening-Mammogram 12/24/2024 12/25/2023, 12/15/2022, 10/21/2021, Additional history exists Depression Screening 07/21/2025 07/21/2024, 01/14/2024, 07/16/2023, Additional history exists Fall Risk Assessment 07/21/2025 07/21/2024, 07/16/2023, 07/11/2022, Additional history exists Well Visit 65+ 07/21/2025 07/21/2024, 12/31, 07/16/2023, Additional history exists Osteoporosis Screening-Bone Density Scan 01/09/2026 01/10/2024, 10/21/2021, 09/18/2018 DTaP/Tdap/Td Vaccine (3 - Td or Tdap) 01/04/2028 01/03/2018, 08/10/2008 Colon Cancer Screening-Colonoscopy 07/02/2033 07/03/2023, 04/08/2015 Hepatitis B Screening Completed 04/02/2003 Zoster Vaccine Completed 09/25/2017, 07/20/2017 Colon Cancer Screening-CT Colonography Discontinued 07/03/2023, 04/08/2015 Colon Cancer Screening-DNA Stool Discontinued 07/03/19, 04/08/2015 Colon Cancer Screening-FIT Discontinued 07/03/2023, Colon Cancer Screening-Sigmoidoscopy Discontinued 07/03/2023, 04/08/2015 Pneumococcal vaccine 65+ Completed 024, 07/20/2017, 06/05/2014 Procedures Procedure Name Priority Date/Time Associated Diagnosis Comments DEXA AXIAL SKELETON BONE DENSITY 1 OR MORE SITES Schedule Routine, Read Routine (OP Routine) 01/10/2024 12:48 PM CDT Menopause SCREENING MAMMOGRAM BILATERAL W OMAR Schedule Routine, Read Routine (OP Routine) 12/25/2023 11:44 AM CDT Breast cancer screening by mammogram COLONOSCOPY 07/03/2023 8:57 AM CDT from Last 3 Months or Most Recently Relevant to Health Maintenance Results * (ABNORMAL) Dexa Axial Skeleton Bone Density 1 or 2 Site (01/10/2024 12:48 PM CDT) SCRIBED DXA T-SCORE -1.3 SCRIBED DXA Z-SCORE 0.5 SCRIBED DXA BMD 0.901 Anatomical Region Laterality Modality Body N/A Radiographic Emily ging Mitzi LÓPEZ DXA PROCEDURES Final R esult * Screening Mammogram Bilateral W Omar (12/25/2023 11:44 AM CDT) Anatomical Region Laterality Modality Breast Bilateral Mammography Mitzi TINSLEY MAMMO PROCEDURES Final Result * Colonoscopy (07/03/2023 8:57 AM CDT) Anatomical Region Laterality Modality Other Narrative Procedure Note Rachael Antonio MD - 07/03/2023 8:57 AM CDT [facility] Patient Name: Neris Alex Procedure Date: 07/03/2023 8:57 AM Date of : 1955 Admit Type: Outpatient Age: 67 Gender: Female Attending MD: Rachael Antonio M.D. Room: [facility] ENDOSCOPY ROOM 05 Note Status: Finalized Procedure: Colonoscopy Indications: Screening for colorectal malignant neoplasm Referring MD: Providers: Rachael Antonio M.D. Medicines: See the Anesthesia note for documentation of the administered medications Complications: No immediate complications. Estimated Blood Loss: Estimated blood loss was minimal. Procedure: The benefits, risks and alternatives of theprocedure and sedation were discussed and informed consentwas obtained. All questions were answered. Please referto the signed informed consent document in the medical record. The scope was passed under direct vision.The PCF-H180AL colonoscope was introduced through theanus and advanced to the cecum, identified byappendiceal orifice and ileocecal valve. The colonoscopy was performed without difficulty. The patient tolerated the procedure well. The quality of the bowel preparation was adequate. Findings: The perianal and digital rectal examinations were normal. The exam was otherwise normal throughout the examined colon. Internal hemorrhoids were found during retroflexion. The hemorrhoids were small. Impression: - Internal hemorrhoids. - No specimens collected. Recommendation: - Repeat colonoscopy in 10 years for screening purposes. Rachael Antonio M.D. Rachael Antonio M.D. 07/03/2023 9:27:02 AM . Number of Addenda: 0 Note Initiated On: 07/03/2023 8:57 AM Recognized by the [employer] for promoting quality in endoscopy Rachael Antonio MD ENDOSCOPY PROCEDURES Final Resul t from Last 3 Months or Most Recently Relevant to Health Maintenance Insurance [employer] PPO [employer] P[employer] Care Teams Route Process Administrator Relationship Specialty Start Date End Date Mitzi Hayes PA [address] [place] [address] PCP - General Internal Medicine 07/09/18
--- OUTSIDE RECORDS SUMMARY | 2024-12-31 08:43 | XMS_ITS | Encounter Summary ---
Author Organization [facility] Address [address] [place] [address] Care Team Providers Care Daytime Babysitter Name Role Phone Diana Butterfield MD Primary Care Provider [phone] Mitzi Hayes Primary Care Provider +1- [phone] Rashid Gomez TECHNOLOGY SALES SPECIALIST Unavailable Encounter Details Date Type Department Care Team (Late st Contact Info) Description 04/08/2015 Orders Only [facility] [address] [place] [address] Scanning, Provider Social History Tobacco Use Types Packs/Day Years Used Date Smoking Tobacco: Never Assessed Comments Unknown Sex and Gender Information Value Date Recorded Sex Assigned at Not on file Legal Sex 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 Gender Identity Female 06/14/2020 3:59 PM CDT Sexual Orientation Straight 06/14/2020 3: 59 PM CDT documented as of this encounter Plan of Treatment Not on file documented as of this encounter Procedures Procedure Name Priority Date/Time Associated Diagnosis Comments GI - RESULT 04/08/2015 documented in this encounter Results * GI - RESULT (04/08/2015) Anatomical Region Laterality Modality Other us Provider Scanning Final Result documented in this encounter Visit Diagnoses Not on filedocumented in this encounter Care Teams Daytime Babysitter Relationship Specialty Start Date End Date Diana Butterfield MD [address] [place] [address] PCP - General 03/17/11 07/08/18 Mitzi Hayes PA [address] [place] [address] PCP - General Internal Medicine 07/09/18 Rashid Gomez LPN [address] [place] [address] ACO Care Flea Market Seller 10/05/23 10/09/23 documented as of this encounter
--- OUTSIDE RECORDS SUMMARY | 2024-12-31 08:43 | XMS_ITS | Clinical Summary ---
Author Organization [facility] Address [address] [place] [address] Care Team Providers Care Human Services Worker Name Role Phone Diana Butterfield MD Primary Care Provider [phone] Source Comments [facility],non-owned Affiliates and Associated Physician Practices is amultiple site organization consisting of ambulatory clinics and hospital sitesin [place], [place], [place] and [place]. This disclosure is being madepursuant to the Care Everywhere program and may not contain all information available regarding this patient. Last updated [email or web address] [email or web address] Social History Tobacco Use Types Packs/Day Years Used Date Smoking Tobacco: Never Assessed Comments Unknown Sex and Gender Information Value Date Recorded Sex Assigned at Not on file Legal Sex Female 3:01 PM CDT Gender Identity Not on file Sexual Orientation Not on file Plan of Treatment Health Maintenance Due Date Last Done Comments BONE DENSITY TESTING 1957 COLOGUARD (AGES 45-75) - COL ON CA SCREENING 1957 COLON MONITORING 1957 COLONOSCOPY - COLON CA SCREENING 1957 CT COLONOGRAPHY - COLON CA SCREENING 1957 Colorectal Cancer Screening 1957 FIT - COLON CA SCREENING 1957 FLEX SIG - COLON CA SCREENING 1957 LIPID TESTING 1957 MAMMOGRAM 1957 MEDICARE AWV 12 MONTHS 1957 HEPATITIS C SCREENING 07/10/1975 DTAP/TDAP/TD VACCINES (1 - Tdap) 1976 PNEUMOCOCCAL VACCINE 50+ (1 of 1 - PCV) 07/15/2007 ZOSTER VACCINE (1 of 2) 07/15/2007 DEPRESSION SCREENING 04/02/2024 COVID-19 VACCINE (1 - 2023-2 5 season) 2024 INFLUENZA VACCINE (#1) 2024 Respiratory Syncytial Virus (RSV) Vaccine Pt: or over 60 yrs (1 - 1-dose 75+ series) 2032 HEPATITIS B VACCINE Aged Out No longe r eligible based on patient's age to complete this topic HIB VACCINE Aged Out No longer eligi ble based on patient's age to complete this topic HPV VACCINE Aged Out No longer eligi ble based on patient's age to complete this topic MENINGOCOCCAL (Group B) VACC INE SHARED DECISION-MAKING Aged Out No longer eligibl e based on patient's age to complete this topic MENINGOCOCCAL GROUPS A/C/Y/W VACCINE Aged Out No longer eligible b ased on patient's age to complete this topic Insurance [employer] [facility] [place] [id number] [facility] [place] [id number] ANTHEM Care Teams Human Services Worker Relationship Specialty Start Date End Date Diana Butterfield MD [address] [place] [address] [place] [id number] PCP - General 09/16/20
--- OUTSIDE RECORDS SUMMARY | 2024-12-31 08:43 | XMS_ITS | Encounter Summary ---
Author Organization [facility] Facility Care Team Providers Care On Air Talent Name Role Phone Diana Butterfield MD Primary Care Provider [phone] Mitzi Hayes Primary Care Provider [phone] Rashid Gomez SUPERVISOR [employer] Unavailable [phone] Encounter Details Date Type Department Care Team (Latest Contact Info) Description 06/27/2018 Orders Only [facility] CLINCONV ProviderMike MD [address] [place], [place] [id number] Social History Tobacco Use Types Packs/Day Years Used Date Smoking Tobacco: Never Assessed Comments Unknown Sex and Gender Information Value Date Recorded Sex Assigned at Not on file 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 Historical Provider Final Res ult documented in this encounter Visit Diagnoses Not on filedocumented in this encounter Care Teams On Air Talent Relationship Specialty Start Date End Date Diana Butterfield MD [address] [address] PCP - General 03/17/11 07/08/18 Mitzi Hayes PA [address] [place] [address] PCP - General Internal Medicine 07/09/18 Rashid Gomez LPN [address] [place] [address] [facility] 10/05/23 10/09/23 documented as of this encounter
== END 2024-12-31 08:31 | disposition home or self-care (01) ==
LOC: ANHFOHIMG 08:33
PROVIDERS: PCP Physician Assistant; Visit Provider Physician Assistant
DX: Z12.31 Encounter for screening mammogram for malignant neoplasm of breast (principal)
CPT/HCPCS: 77063; 77067